=== PATIENT | female | born 1945 | race Caucasian/White ===

== ENCOUNTER 2020-09-16 12:51 | Inpatient (IN) | payer MEDICARE, OTHER ==
[~2020-09-16] VITALS: Ht 170.2 cm; Wt 88.2 kg
[2020-09-16] MEDS ORDERED: RT-ALBUTEROL INHALER HFA (VENTOLIN HFA) 18 GM IH ONE (13:30)
[2020-09-16] MEDS ORDERED: PROMETHAZINE/ CODEINE SYRUP 5 ML UDC PO ONE (13:45)
[2020-09-16] MEDS ORDERED: methylPREDNISolone 125 MG (Solu-MEDROL) VIAL IVP ONE (13:45)
[2020-09-16 13:47] LABS: ABG BASE EXCESS 2.5 MMOL/L (-2.5-2.5); ABG OXYGEN SATURATION 89 % (94-100); ABG PCO2 46 MMHG (35-45); ABG PH 7.38 (7.37-7.43); ABG PO2 60 MMHG (79-93); ABG TCO2 28.7 MMOL/L (21.0-31.0)
[2020-09-16 13:50] LABS: ALLENS TEST YES-POS; INSPIRED O2 2L; PATIENT TEMP 97.5; VENTILATOR NO
[2020-09-16 13:51] LABS: BASOPHILS # (AUTO) 0.1 10^3/uL (0.0-0.1); BASOPHILS % (AUTO) 1 % (0-10); EOSINOPHILS # (AUTO) 1.5 10^3/uL (0.0-0.3); EOSINOPHILS % (AUTO) 19 % (0-10); HEMATOCRIT 40 % (35-52); LYMPHOCYTES # (AUTO) 1.6 10^3/uL (1.0-4.0); LYMPHOCYTES % (AUTO) 21 % (12-44); MEAN CORPUSCULAR HEMOGLOBIN 31 pg (25-34); MEAN CORPUSCULAR HGB CONC 32 g/dL (32-36); MEAN CORPUSCULAR VOLUME 96 fL (80-99); MEAN PLATELET VOLUME 9.8 fL (9.0-12.2); MONOCYTES # (AUTO) 0.5 10^3/uL (0.0-1.0); MONOCYTES % (AUTO) 6 % (0-12); NEUTROPHILS # (AUTO) 3.9 10^3/uL (1.8-7.8); NEUTROPHILS % (AUTO) 52 % (42-75); PLATELET COUNT 274 10^3/uL (130-400); WHITE BLOOD COUNT 7.5 10^3/uL (4.3-11.0)
[2020-09-16 13:56] LABS: ALBUMIN 4.3 GM/DL (3.2-4.5)
--- NOTE | 2020-09-16 13:56 | ED Respiratory ---
General Chief Complaint: Respiratory Problems Stated Complaint: SOB Nursing Triage Note: Pt to ED via EMS. Pt reports increased SOB yesterday. Pt was tested for COVID yesterday but has not received the results. Pt reports symptoms have worsened today. Pt reports health dept gave pt an in home breathing treatment today. EMS reports pt was 85% on room air upon arrival. Pt placed on $L NC and O2 97-98%. Pt reports wearing O2 at night. Source: patient Exam Limitations: no limitations History of Present Illness Date Seen by Provider: Sep 16, 2020 Time Seen by Provider: 13:53 Initial Comments To ER with reports of shortness of breath for about 3 months. She was tested for Covid yesterday but does not know the results. She states she has not left her house and has been diligent about avoiding any social interaction. However she states that she lost her sense of taste and smell about a week ago. Timing/Duration: constant Severity: moderate Associated Symptoms: cough, shortness of breath Allergies and Home Medications Allergies Coded Allergies: No Known Drug Allergies (Unverified , 09/16/20) Patient Home Medication List Home Medication List Reviewed: Yes Review of Systems Review of Systems Constitutional: see HPI EENTM: see HPI Respiratory: see HPI, cough, dyspnea on exertion, short of breath Genitourinary: no symptoms reported Musculoskeletal: no symptoms reported Skin: no symptoms reported Psychiatric/Neurological: No Symptoms Reported Hematologic/Lymphatic: No Symptoms Reported Past Avingpc-Sqmyxx-Hzctsl Hx Patient Social History Alcohol Use: Denies Use Recreational Drug Use: No Smoking Status: Never a Smoker 2nd Hand Smoke Exposure: No Recent Foreign Travel: No Contact w/Someone Who Travel: No Recent Infectious Disease Expo: No Recent Hopitalizations: No Past Medical History Surgeries: Yes (bilat knees) Bladder Surgery, Gallbladder, Hysterectomy, Orthopedic, Tonsillectomy Respiratory: No High Cholesterol, Hypertension 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 oz. kg; 43.00 BMI Method: General Appearance: WD/WN, no apparent distress, other (After turning the oxygen off, with exertion she dropped to 85%.) Eyes: Bilateral Eye Normal Inspection, Bilateral Eye PERRL HEENT: PERRL/EOMI, normal ENT inspection Neck: non-tender, full range of motion Respiratory: no respiratory distress, no accessory muscle use, other (Persistent cough, audible wheezing) Cardiovascular: regular rate, rhythm, no murmur Gastrointestinal: normal bowel sounds, non tender, soft Neurologic/Psychiatric: alert, normal mood/affect, oriented x 3 Skin: normal color, warm/dry Progress/Results/Core Measures Suspected Sepsis Recent Fever Within 48 Hours: No Infection Criteria Present: None New/Unexplained Altered Menta: No Sepsis Screen: No Definite Risk SIRS Temperature: Pulse: 77 Respiratory Rate: 12 Laboratory Tests 09/16/20 13:30: White Blood Count 7.5 Blood Pressure 149 /83 Mean: 105 Laboratory Tests 09/16/20 13:30: Creatinine 0.81, Platelet Count 274, Total Bilirubin 0.7 Results/Orders Lab Results Laboratory Tests Test 09/16/20 13:15 09/16/20 13:30 09/16/20 13:35 Range/Units Coronavirus 2019 (JAYNA) Negative Negative White Blood Count 7.5 4.3-11.0 10^3/uL Red Blood Count 4.18 3.80-5.11 10^6/uL Hemoglobin 13.0 11.5-16.0 g/dL Hematocrit 40 35-52 % Mean Corpuscular Volume 96 80-99 fL Mean Corpuscular Hemoglobin 31 25-34 pg Mean Corpuscular Hemoglobin Concent 32 32-36 g/dL Red Cell Distribution Width 13.8 10.0-14.5 % Platelet Count 274 130-400 10^3/uL Mean Platelet Volume 9.8 9.0-12.2 fL Immature Granulocyte % (Auto) 0 % Neutrophils (%) (Auto) 52 42-75 % Lymphocytes (%) (Auto) 21 12-44 % Monocytes (%) (Auto) 6 0-12 % Eosinophils (%) (Auto) 19 H 0-10 % Basophils (%) (Auto) 1 0-10 % Neutrophils # (Auto) 3.9 1.8-7.8 10^3/uL Lymphocytes # (Auto) 1.6 1.0-4.0 10^3/uL Monocytes # (Auto) 0.5 0.0-1.0 10^3/uL Eosinophils # (Auto) 1.5 H 0.0-0.3 10^3/uL Basophils # (Auto) 0.1 0.0-0.1 10^3/uL Immature Granulocyte # (Auto) 0.0 0.0-0.1 10^3/uL Neutrophils % (Manual) 54 % Lymphocytes % (Manual) 18 % Monocytes % (Manual) 5 % Eosinophils % (Manual) 23 % Blood Morphology Comment NORMAL D-Dimer 0.91 H 0.00-0.49 UG/ML Sodium Level 140 135-145 MMOL/L Potassium Level 3.9 3.6-5.0 MMOL/L Chloride Level 103 98-107 MMOL/L Carbon Dioxide Level 27 21-32 MMOL/L Anion Gap 10 5-14 MMOL/L Blood Urea Nitrogen 21 H 7-18 MG/DL Creatinine 0.81 0.60-1.30 MG/DL Estimat Glomerular Filtration Rate > 60 BUN/Creatinine Ratio 26 Glucose Level 183 H 70-105 MG/DL Calcium Level 9.3 8.5-10.1 MG/DL Corrected Calcium 9.1 8.5-10.1 MG/DL Total Bilirubin 0.7 0.1-1.0 MG/DL Aspartate Amino Transf (AST/SGOT) 19 5-34 U/L Alanine Aminotransferase (ALT/SGPT) 13 0-55 U/L Alkaline Phosphatase 70 40-136 U/L Troponin I < 0.028 <0.028 NG/ML B-Type Natriuretic Peptide 31.6 <100.0 PG/ML Total Protein 7.0 6.4-8.2 GM/DL Albumin 4.3 3.2-4.5 GM/DL Procalcitonin 0.02 <0.10 NG/ML Blood Gas Puncture Site LR Blood Gas Patient Temperature 97.5 Arterial Blood pH 7.38 7.37-7.43 Arterial Blood Partial Pressure CO2 46 H 35-45 MMHG Arterial Blood Partial Pressure O2 60 L 79-93 MMHG Arterial Blood HCO3 27 23-27 MMOL/L Arterial Blood Total CO2 28.7 21.0-31.0 MMOL/L Arterial Blood Oxygen Saturation 89 L 94-100 % Arterial Blood Base Excess 2.5 -2.5-2.5 MMOL/L Rafa Test YES-POS Blood Gas Ventilator Setting NO Blood Gas Inspired Oxygen 2L My Orders Orders - HANS ALVAREZ APRN Albuterol Inhaler (Ventolin Hfa) (09/16/20 13:30) Arterial Blood Gas (09/16/20 13:37) Cbc With Automated Diff (09/16/20 13:44) Comprehensive Metabolic Panel (09/16/20 13:44) BNP (09/16/20 13:44) Fibrin Degradation Products (09/16/20 13:44) Ekg Tracing (09/16/20 13:44) Troponin I (09/16/20 13:44) Chest 1 View, Ap/Pa Only (09/16/20 13:44) Procalcitonin (Pct) (09/16/20 13:44) Methylprednisolone Sod Succ (Solu-Medrol (09/16/20 13:45) Albuterol Inhaler (Ventolin Hfa) (09/16/20 14:00) Promethazine/ Codeine Syrup (Phenergan W (09/16/20 13:45) Manual Differential (09/16/20 13:30) Covid 19 Inhouse Test (09/16/20 14:05) Coronavirus Sars-Cov-2 So 2018 (09/16/20 14:49) Medications Given in ED Current Medications Medications Dose Ordered Sig/Koffi Route Start Time Stop Time Status Last Admin Dose Admin Albuterol Sulfate 18 gm STK-MED ONCE IH 09/16/20 13:30 09/16/20 13:33 DC 09/16/20 13:39 18 GM Methylprednisolone Sodium Succinate 125 mg ONCE ONCE IVP 09/16/20 13:45 09/16/20 13:46 DC 09/16/20 14:08 125 MG Promethazine HCl/ Codeine 5 ml ONCE ONCE PO 09/16/20 13:45 09/16/20 13:46 DC 09/16/20 14:07 5 ML Vital Signs/I&O 09/16/20 13:01 Temp 36.8 Pulse 77 Resp 12 B/P (MAP) 149/83 (105) Pulse Ox 98 O2 Delivery Nasal Cannula O2 Flow Rate 4.00 Capillary Refill : Less Than 3 Seconds Blood Pressure Mean: 105 Departure Communication (Admissions) Time/Spoke to Admitting Phy: 14:51 She does not wear oxygen at home. She does drop to 85% with a good waveform on her oxygen saturation with any exertion such as movement in bed to obtain an x- ray. At rest at 2 L she is 96%. The albuterol inhaler did help with the wheezing. Impression Primary Impression: ARTEAGA (dyspnea on exertion) Additional Impression: Reactive airway disease Disposition: ADMITTED INPATIENT Condition: Stable Admissions Decision to Admit Reason: Admit from ER (General) Decision to Admit/Date: Sep 16, 2020 Time/Decision to Admit Time: 14:51 HANS ALVAREZ APRN Sep 16, 2020 13:56
[2020-09-16 13:57] LABS: CHLORIDE 103 MMOL/L (98-107); POTASSIUM 3.9 MMOL/L (3.6-5.0); SODIUM 140 MMOL/L (135-145)
[2020-09-16 13:58] LABS: CALCIUM 9.3 MG/DL (8.5-10.1)
[2020-09-16 13:59] LABS: GLUCOSE 183 MG/DL (70-105)
[2020-09-16 14:00] LABS: CARBON DIOXIDE 27 MMOL/L (21-32)
[2020-09-16] MEDS ORDERED: RT-ALBUTEROL INHALER HFA (VENTOLIN HFA) 18 GM IH SCH ×2 (14:00→18:00)
[2020-09-16 14:01] LABS: BILIRUBIN,TOTAL 0.7 MG/DL (0.1-1.0)
[2020-09-16 14:02] LABS: ALKALINE PHOSPHATASE 70 U/L (40-136); EOSINOPHILS % (MANUAL) 23 %; LYMPHOCYTES % (MANUAL) 18 %; MONOCYTES % (MANUAL) 5 %; NEUTROPHILS % (MANUAL) 54 %; RBC MORPH NORMAL
[2020-09-16 14:03] LABS: CREATININE SERUM 0.81 MG/DL (0.60-1.30); GFR ESTIMATED > 60
[2020-09-16 14:04] LABS: BUN/CREATININE RATIO 26
[2020-09-16 14:06] LABS: ALANINE AMINOTRANSFERASE 13 U/L (0-55)
--- NOTE | 2020-09-16 14:12 | Diagnostic Imaging Report ---
INDICATION: Cough. COMPARISON: No priors. FINDINGS: The lungs are clear. There is no failure, effusion, or pneumothorax. IMPRESSION: Negative. Dictated by: Dictated on workstation # [id number]
[2020-09-16] MEDS ORDERED: TRIFLURIDINE 1% 7.5 ML BTL (VIROPTIC) NON-FORMULARY OU SCH (15:00)
[2020-09-16] MEDS ORDERED: CATHETER FLUSH 10 ML SYR IV PRN (16:15)
--- NOTE | 2020-09-16 16:30 | NUR ---
LISA ZEPEDA admitted to room 403-1, with an admitting diagnosis of COPD EXACERBATION, on 09/16/20 from AM via , accompanied by .LISA ZEPEDA introduced to surroundings, call light, bed controls, phone, TV, temperature control, lights, meal times, smoking policy, visitor policy, side rail policy, bathrooms and showers. Patient Rights given to patient in the handbook.LISA ZEPEDA verbalizes understanding that [facility] is not responsible for the loss or damage to any personal effects or valuables that are kept in the patients posession during their hospitalization. LISA ZEPEDA verbalizes understanding of Interdisciplinary Patient Education. Patient and/or family were informed about the Rapid Response Team and its purpose.
[2020-09-16 16:52] VITALS: BP 162/78
[2020-09-16] MEDS ORDERED: FLU QUAD HIGH DOSE 240 MCG/0.7 ML 2020-21 (FLUZONE) IM ONE (17:00)
[2020-09-16 17:28] VITALS: BP 149/83
[2020-09-16] MEDS ORDERED: RT-ALBUTEROL INHALER HFA (VENTOLIN HFA) 18 GM IH PRN (17:45)
[2020-09-16] MEDS ORDERED: ALBUTEROL/IPRATROP (COMBIVENT RESPIMAT) 4 GM INHALER INH SCH (19:00)
[2020-09-16] MEDS: RT-ALBUTEROL INHALER HFA (VENTOLIN HFA) 18 GM IH SCH (19:02)
[2020-09-16 20:00] VITALS: BP 189/79
[2020-09-16] MEDS: methylPREDNISolone 40 MG/ML (Solu-MEDROL) VIAL IV SCH (21:04)
[2020-09-16] MEDS: CATHETER FLUSH 10 ML SYR IV SCH (21:05)
[2020-09-16] MEDS: ACETAMINOPHEN 500 MG TAB (TYLENOL) PO PRN (21:53)
[2020-09-17 00:21] VITALS: BP 170/64
[2020-09-17 04:36] VITALS: BP 182/71
[2020-09-17] MEDS: RT-ALBUTEROL INHALER HFA (VENTOLIN HFA) 18 GM IH SCH ×4 (04:52→20:05)
[2020-09-17] MEDS: methylPREDNISolone 40 MG/ML (Solu-MEDROL) VIAL IV SCH ×3 (04:53→21:14)
[2020-09-17] MEDS: CATHETER FLUSH 10 ML SYR IV SCH ×3 (04:53→21:14)
[2020-09-17 05:31] LABS: BASOPHILS % (AUTO) 0 % (0-10); EOSINOPHILS % (AUTO) 0 % (0-10); HEMATOCRIT 41 % (35-52); HEMOGLOBIN 12.9 g/dL (11.5-16.0); LYMPHOCYTES % (AUTO) 12 % (12-44); MEAN CORPUSCULAR HEMOGLOBIN 31 pg (25-34); MEAN CORPUSCULAR HGB CONC 32 g/dL (32-36); MEAN CORPUSCULAR VOLUME 97 fL (80-99); MEAN PLATELET VOLUME 10.6 fL (9.0-12.2); MONOCYTES # (AUTO) 0.1 10^3/uL (0.0-1.0); MONOCYTES % (AUTO) 2 % (0-12); NEUTROPHILS # (AUTO) 6.9 10^3/uL (1.8-7.8); NEUTROPHILS % (AUTO) 86 % (42-75); PLATELET COUNT 246 10^3/uL (130-400)
[2020-09-17 06:03] LABS: ALBUMIN 4.4 GM/DL (3.2-4.5); CHLORIDE 105 MMOL/L (98-107); POTASSIUM 3.7 MMOL/L (3.6-5.0); SODIUM 139 MMOL/L (135-145)
[2020-09-17 06:04] LABS: CALCIUM 9.5 MG/DL (8.5-10.1)
[2020-09-17 06:05] LABS: GLUCOSE 241 MG/DL (70-105); TOTAL PROTEIN 7.2 GM/DL (6.4-8.2)
[2020-09-17 06:06] LABS: CARBON DIOXIDE 22 MMOL/L (21-32)
[2020-09-17 06:07] LABS: BILIRUBIN,TOTAL 0.6 MG/DL (0.1-1.0)
[2020-09-17 06:08] LABS: ALKALINE PHOSPHATASE 69 U/L (40-136)
[2020-09-17 06:09] LABS: CREATININE SERUM 0.79 MG/DL (0.60-1.30); GFR ESTIMATED > 60
[2020-09-17 06:10] LABS: BUN/CREATININE RATIO 23
[2020-09-17 06:12] LABS: ALANINE AMINOTRANSFERASE 12 U/L (0-55)
[2020-09-17] MEDS: ACETAMINOPHEN 500 MG TAB (TYLENOL) PO PRN (06:23)
[2020-09-17 08:00] VITALS: BP 160/70
--- NOTE | 2020-09-17 09:21 | History & Physical-Hospitalist ---
History of Present Illness HPI/Chief Complaint CC: SOB with wheezing HPI: This is a 75yoWF pt who remains on O2 at night of two liters who also has a history of chemotherapy induced neuropathy and chronic pain who presents to the ER with SOB. Covid swab for rapid and PCR were both negative so she was taken out of isolation this morning. Pt reports feeling wheezing and in need of aggressive IV steroid regimen along with breathing treatments and close monitoring. Procalcitonin was negative, no antibiotics required and will start her Gabapentin and Hydrocodone for her chronic neuropathy that causes a great deal of pain. We will also restart her Singulair and in addition will restart inhaled corticosteroid with Budesonide twice daily. Source: patient Exam Limitations: no limitations Date Seen 09/17/20 Time Seen by a Provider: 10:00 Attending Physician Patsy Owens MD PCP Referring Physician Date of Admission Sep 16, 2020 at 15:00 Home Medications & Allergies Home Medications Reviewed patient Home Medication Reconciliation performed by pharmacy medication reconciliations help desk technician and/or nursing. Patients Allergies have been reviewed. Allergies Allergies Coded Allergies No Known Drug Allergies (Feexoctpot67/15/20) Past Kqbzlaf-Ffhmqn-Ekywzq Hx Past Med/Social Hx: Reviewed Nursing Past Med/Soc Hx, Reviewed and Corrections made Patient Social History Marrital Status: Employed/Student: retired Alcohol Use: Denies Use Recreational Drug Use: No Smoking Status: Never a Smoker 2nd Hand Smoke Exposure: No Recent Foreign Travel: No Contact w/other who traveled: No Recent Hopitalizations: No Recent Infectious Disease Expo: No Past Medical History Surgeries: Bladder Surgery, Gallbladder, Hysterectomy, Orthopedic, Tonsillectomy Respiratory: COPD night time hypoxia Cardiac: High Cholesterol, Hypertension Hysterectomy Musculoskeletal: Arthritis, Chronic Back Pain Endocrine: Diabetes, Non-Insulin dep HEENT: Cataract Cancer: Ovarian Did You Recieve Any Treatments: Yes What Type of Treatment Did You: Chemotherapy History of Blood Disorders: No Review of Systems Constitutional: see HPI, malaise, weakness Respiratory: cough, dyspnea on exertion, wheezing Physical Exam Physical Exam Vital Signs Vital Signs - First Documented 09/16/20 13:01 Temp 36.8 Pulse 77 Resp 12 B/P (MAP) 149/83 (105) Pulse Ox 98 O2 Delivery Nasal Cannula O2 Flow Rate 4.00 Capillary Refill : Less Than 3 Seconds Height, Weight, BMI Height: '" Weight: lbs. oz. kg; 30.44 BMI Method: General Appearance: No Apparent Distress, Chronically ill Eyes: Right Eye Normal Inspection, Right Eye PERRL HEENT: PERRL/EOMI, Normal ENT Inspection, Pharynx Normal, Moist Mucous Membranes Neck: Full Range of Motion, Normal Inspection, Non Tender Respiratory: Chest Non Tender, No Accessory Muscle Use, No Respiratory Distress, Decreased Breath Sounds, Rales, Wheezing Cardiovascular: Regular Rate, Rhythm, No Edema, No Gallop, No JVD, No Murmur, Normal Peripheral Pulses Gastrointestinal: Normal Bowel Sounds, No Organomegaly, No Pulsatile Mass, Non Tender, Soft Back: Normal Inspection, No CVA Tenderness, No Vertebral Tenderness Extremity: Normal Capillary Refill, Normal Inspection, Normal Range of Motion, Non Tender, No Calf Tenderness, No Pedal Edema Neurologic/Psychiatric: Alert, Oriented x3, No Motor/Sensory Deficits, Normal Mood/Affect Skin: Normal Color, Warm/Dry Lymphatic: No Adenopathy Results Results/Procedures Labs Laboratory Tests 09/16/20 13:30 09/17/20 04:25 Patient resulted labs reviewed. Assessment/Plan Admission Diagnosis Assessment: AECOPD Hypoxia COVID negative CHemotherapy induced neuropathy DM HTN Plan: IV steroids Nebs O2 IS ICS Admission Status: Inpatient Order (span 2 midnights) Reason for Inpatient Admission: resp insuff with wheezing Diagnosis/Problems Diagnosis/Problems (1) Reactive airway disease Status: Acute (2) ARTEAGA (dyspnea on exertion) Status: Acute Clinical Quality Measures DVT/VTE Risk/Contraindication: Risk Factor Score Per Nursin RFS Level Per Nursing on Admit: 4+=Very High ABIGAIL MAHER DO Sep 17, 2020 09:21
[2020-09-17] MEDS ORDERED: MONTELUKAST 10 MG (SINGULAIR) TAB PO NR (09:45)
[2020-09-17] MEDS ORDERED: RT-ALBUTEROL/IPRATROPIUM 3 ML (DUONEB) VIAL INH SCH (09:45)
[2020-09-17] MEDS: GABAPENTIN 600 MG (NEURONTIN) TAB PO SCH ×3 (10:13→21:14)
[2020-09-17] MEDS: ENOXAPARIN 40 MG/0.4 ML (LOVENOX) SYR SC SCH (10:14)
--- NOTE | 2020-09-17 10:47 | NUR ---
"RD ASSESSMENT PMHx: hypercholesterolemia; HTN; DM; CA(ovarian); PT INTERACTION: Note pt is currently in COVID isolation, per chart review. Note all diet information for nutrition assessment is per Timothy RN or per chart review. Ne states current appetite appears good. Note avg PO intake 75% x2meal, per chart review. Timothy states no issues with nausea, vomiting, constipation, or diarrhea, and that her last BM was 09/16. Note pt not currently on bowel regimen per chart review. Note unable to determine recent wt hx, per chart review. Note unable to determine current level of DM management, and unable to determine recent HbA1c, per chart review. ABNORMAL NUTRITION-RELATED LAB VALUES LOW: HIGH: glu 241; Est. kcal needs: 1840-2449 kcal | 15-20 kcal/kg Est. Pro needs: 70-88 g Pro | 0.8-1.0 g Pro/kg PES STATEMENT: Given current appetite and PO intake, no nutrition diagnosis at this time (NO-1.1). INTERVENTION: Would recommend switching diet order to Consistent CHO diet, as blood glucose levels are elevated. Did not offer diet education on DM management d/t isolation precautions. Will continue to follow and reassess as pt needs, intake, and status change. S CARLOS TELLO, MS RD LD [phone] cell"
[2020-09-17] MEDS: RT-BUDESONIDE NEBS 0.5 MG/2ML (PULMICORT) AMP INH SCH (11:28)
[2020-09-17] MEDS: HYDROcodone/APAP 10 MG/325 MG (LORTAB) TAB PO PRN ×2 (13:07→21:17)
[2020-09-17 16:00] VITALS: BP 188/74
[2020-09-17 20:00] VITALS: BP 172/71
[2020-09-17] MEDS: MONTELUKAST 10 MG (SINGULAIR) TAB PO SCH (21:14)
[2020-09-18 00:33] VITALS: BP 193/77
[2020-09-18] MEDS: guaiFENesin/CODEINE (ROBITUSSIN AC) 10ML UDC PO PRN ×3 (01:13→21:41)
[2020-09-18] MEDS: RT-ALBUTEROL INHALER HFA (VENTOLIN HFA) 18 GM IH SCH ×4 (03:07→20:34)
[2020-09-18 04:00] VITALS: BP 191/77
--- NOTE | 2020-09-18 05:53 | Progress Note - Hospitalist ---
Subjective HPI/CC On Admission Date Seen by Provider: Sep 18, 2020 Time Seen by Provider: 10:00 CC: SOB with wheezing HPI: This is a 75yoWF pt who remains on O2 at night of two liters who also has a history of chemotherapy induced neuropathy and chronic pain who presents to the ER with SOB. Covid swab for rapid and PCR were both negative so she was taken out of isolation this morning. Pt reports feeling wheezing and in need of aggressive IV steroid regimen along with breathing treatments and close monitoring. Procalcitonin was negative, no antibiotics required and will start her Gabapentin and Hydrocodone for her chronic neuropathy that causes a great deal of pain. We will also restart her Singulair and in addition will restart inhaled corticosteroid with Budesonide twice daily. Subjective/Events-last exam Patient improved but still wheezy and coughing Labs reviewed Steroid effect increasing wbc No pain reported as long as home meds given Eating better PT OT will be ordered ACCu checks will be ordered Review of Systems Pulmonary: Dyspnea, Cough Objective Exam Vital Signs Vital Signs Date Time Temp Pulse Resp B/P (MAP) Pulse Ox O2 Delivery O2 Flow Rate FiO2 09/19/20 04:00 36.8 56 18 181/76 (111) 97 Nasal Cannula 2.50 Capillary Refill : Less Than 3 Seconds General Appearance: No Apparent Distress, WD/WN, Anxious, Chronically ill Respiratory: No Accessory Muscle Use, No Respiratory Distress, Decreased Breath Sounds, Wheezing Cardiovascular: Regular Rate, Rhythm Neurologic/Psychiatric: Alert, Oriented x3, No Motor/Sensory Deficits, Normal Mood/Affect Results/Procedures Lab Laboratory Tests 09/18/20 05:50 Patient resulted labs reviewed. Assessment/Plan Assessment and Plan Assess & Plan/Chief Complaint Assessment: AECOPD Hypoxia COVID negative CHemotherapy induced neuropathy DM HTN Plan: IV steroids Nebs O2 IS ICS 09/18/20: Accuchecks with SSI PT OT Nebs Antitussives Diagnosis/Problems Diagnosis/Problems (1) Reactive airway disease Status: Acute (2) ARTEAGA (dyspnea on exertion) Status: Acute Clinical Quality Measures DVT/VTE Risk/Contraindication: Risk Factor Score Per Nursin RFS Level Per Nursing on Admit: 4+=Very High ABIGAIL MAHER DO Sep 18, 2020 05:53
[2020-09-18] MEDS: methylPREDNISolone 40 MG/ML (Solu-MEDROL) VIAL IV SCH ×3 (06:30→21:43)
[2020-09-18] MEDS: CATHETER FLUSH 10 ML SYR IV SCH ×2 (06:31→21:43)
[2020-09-18 06:48] LABS: BASOPHILS % (AUTO) 0 % (0-10); EOSINOPHILS % (AUTO) 0 % (0-10); HEMATOCRIT 42 % (35-52); HEMOGLOBIN 13.4 g/dL (11.5-16.0); LYMPHOCYTES # (AUTO) 1.3 10^3/uL (1.0-4.0); LYMPHOCYTES % (AUTO) 7 % (12-44); MEAN CORPUSCULAR HEMOGLOBIN 30 pg (25-34); MEAN CORPUSCULAR HGB CONC 32 g/dL (32-36); MEAN CORPUSCULAR VOLUME 95 fL (80-99); MEAN PLATELET VOLUME 10.5 fL (9.0-12.2); MONOCYTES # (AUTO) 0.4 10^3/uL (0.0-1.0); MONOCYTES % (AUTO) 3 % (0-12); NEUTROPHILS % (AUTO) 90 % (42-75); PLATELET COUNT 327 10^3/uL (130-400); WHITE BLOOD COUNT 17.8 10^3/uL (4.3-11.0)
[2020-09-18 07:14] LABS: LYMPHOCYTES % (MANUAL) 10 %; MONOCYTES % (MANUAL) 3 %; NEUTROPHILS % (MANUAL) 87 %; RBC MORPH NORMAL
[2020-09-18 07:17] LABS: ALANINE AMINOTRANSFERASE 16 U/L (0-55); ALBUMIN 4.6 GM/DL (3.2-4.5); ALKALINE PHOSPHATASE 69 U/L (40-136); BILIRUBIN,TOTAL 0.6 MG/DL (0.1-1.0); BUN/CREATININE RATIO 21; CALCIUM 9.8 MG/DL (8.5-10.1); CARBON DIOXIDE 27 MMOL/L (21-32); CHLORIDE 103 MMOL/L (98-107); CREATININE SERUM 0.89 MG/DL (0.60-1.30); GFR ESTIMATED > 60; GLUCOSE 249 MG/DL (70-105); POTASSIUM 3.7 MMOL/L (3.6-5.0); SODIUM 141 MMOL/L (135-145); TOTAL PROTEIN 7.6 GM/DL (6.4-8.2)
[2020-09-18 08:00] VITALS: BP 180/76
[2020-09-18] MEDS: ENOXAPARIN 40 MG/0.4 ML (LOVENOX) SYR SC SCH (08:56)
[2020-09-18] MEDS: GABAPENTIN 600 MG (NEURONTIN) TAB PO SCH ×3 (08:56→21:41)
[2020-09-18] MEDS: RT-BUDESONIDE NEBS 0.5 MG/2ML (PULMICORT) AMP INH SCH ×2 (10:35→20:37)
[2020-09-18 11:10] VITALS: BP 137/65
--- NOTE | 2020-09-18 13:33 | Occupational Therapy Eval ---
OT Evaluation-General/PLF Medical Diagnosis Admission Date Sep 16, 2020 at 15:00 Medical Diagnosis: COPD exacerbation Onset Date: Sep 16, 2020 Therapy Diagnosis Therapy Diagnosis: decreased activity tolerance, weakness Precautions Precautions/Isolations: Standard Precautions Referral Physician: Vic Galvin Reason: Evaluation/Treatment Medical History Pertinent Medical History: Arthritis, COPD, DM, HTN Additional Medical History ovarian cancer, chemotherapy induced neuropathy and chronic pain, bladder surgery, gallbladder surgery, night time hypoxia, COPD, HTN, arthritis, DM, Current History ER due to SOB, Negative for COVID Social History Home: Single Level Current Living Status: Children Entry Into Home: Stairs Without Railing Steps Into Home: 3 Pt moving to a rental house with her daughter at discharge. This house is a single story house with a few steps to enter, no rails. ADL-Prior Level of Function SCALE: Activities may be completed with or without assistive devices. 3-Lxgbphqycd-amxynwe completes the activity by him/herself with no assistance from a helper. 5-Set-up or Clean-up Assistance-helper sets up or cleans up; patient completes activity. [place] assists only prior to or following the activity. 4-Supervision or Touching Assistance-helper provides verbal cues and/or touching/steadying and/or contact guard assistance as patient completes activity. Assistance may be provided throughout the activity or intermittently. 3-Partial/Moderate Assistance-helper does LESS THAN HALF the effort. [place] lifts, holds or supports trunk or limbs, but provides less than half the effort. 2-Substantial/Maximal Assistance-helper does MORE THAN HALF the effort. [place] lifts or holds trunk or limbs and provides more than half the effort. 3-Moljeurzn-afkmnw does ALL the effort. Patient does none of the effort to complete the activity. Or, the assistance of 2 or more helpers is required for the patient to complete the activity. If activity was not attempted, code reason: 7-Patient Refused. 9-Not Applicable-not attempted and the patient did not perform the activity before the current illness, exacerbation or injury. 10-Not Attempted due to Environmental Limitations-(lack of equipment, weather restraints, etc.). 88-Not Attempted due to Medical Conditions or Safety Concerns. ADL PLOF Comments Pt indicates she was able to complete all ADLS and functional mobility independently at PLOF, using quad cane. Pt indicates she is moving to a rental house with her daughter upon discharge, this house has a tub/shower. She does not have a shower chair or grab bars but her daughter is in the process of trying to obtain these items. Self Care: Independent Functional Cognition: Independent DME/Equipment: Tub/Shower DME/Equipment Comments quad cane OT Current Status Subjective Pt laying in bed, agreeable to OT evaluation and tx. Pt states she has been getting herself up to BSC independently. Mental Status/Objective Patient Orientation: Person, Place, Time, Situation Attachments: Oxygen Current Hand Dominance: Right Upper Extremity ROM WFL, BUE shoulder flexion to approx 160 degrees, able to touch back of head with hands. Upper Extremity Coordination slightly decreased due to decreased sensation in fingers Upper Extremity Sensation decreased sensations BUE hands/fingers. ADL-Treatment Eating (QC): 6 (per pt report, pt independent with task.) Oral Hygiene (QC): 6 (based on clinical judgement, pt independent with task) On/Off Footwear (QC): 6 Toileting Hygiene (QC): 6 (IND per pt report.) Other Treatments Pt laying in bed. OT educated pt on purpose and benefit of OT, she verbalized understanding. Pt provided information about PLOF and home set up. Pt transferred supine to sit EOB, SBA. Pt required rest break due to SOB. Pt able to independently don gripper socks at EOB, then stood at EOB and took a few steps with SBA. Pt returned to EOB, doffed gripper socks, and participated in UE screen, transferring supine independently. Pt indicates she has been getting herself up to the BSC independently. Post tx, pt laying in bed, call light in reach and all needs met. Education OT Patient Education: Correct positioning, Energy conservation, Modified ADL techniques, Progress toward Goal/Update tx plan, Purpose of tx/functional activities, Rehab process Teaching Recipient: Patient Teaching Methods: Discussion Response to Teaching: Verbalize Understanding OT Group Home Goals Food And Drug Inspector Goals 1=Demonstrate adherence to instructed precautions during ADL tasks. 2=Patient will verbalize/demonstrate understanding of assistive devices/modifications for ADL. 3=Patient will improve strength/tolerance for activity to enable patient to perform ADL's. OT Education/Plan Problem List/Assessment Assessment: No Skilled OT Needs ID'd Pt is currently independent with all ADLs, no skilled OT services indicated at this time Discharge Recommendations Plan/Recommendations: Discharge/Goals Met Treatment Plan/Plan of Care Patient would benefit from OT for education, treatment and training to promote independence in ADL's, mobility, safety and/or upper extremity function for ADL's. Plan of Care: ADL Retraining Treatment Duration: Sep 18, 2020 Frequency: 1 time per week (eval only) Time/GCodes Start Time: 13:09 Stop Time: 13:21 Total Time Billed (hr/min): 12 Billed Treatment Time 1, JOHN SESAY OT Sep 18, 2020 13:33
[2020-09-18] MEDS: ACETAMINOPHEN 500 MG TAB (TYLENOL) PO PRN ×2 (13:56→21:41)
--- NOTE | 2020-09-18 14:28 | Physical Therapy Evaluation ---
PT Evaluation-General Medical Diagnosis Admission Date Sep 16, 2020 at 15:00 Medical Diagnosis: COPD exacerbation Onset Date: Sep 16, 2020 Therapy Diagnosis Therapy Diagnosis: debility Precautions Precautions/Isolations: Standard Precautions Referral Physician: Vic Reason for Referral: Evaluation/Treatment Medical History Pertinent Medical History: Arthritis, COPD, DM, HTN Current History EMS secondary to SOA x 3 months Reviewed History: Yes Social History Home: Single Level Current Living Status: Children Entry Into Home: Stairs Without Railing PT Steps Into Home: 3 Prior Prior Level of Function SCALE: Activities may be completed with or without assistive devices. 0-Cnquowzbwn-kcgxikl completes the activity by him/herself with no assistance from a helper. 5-Set-up or Clean-up Assistance-helper sets up or cleans up; patient completes activity. [place] assists only prior to or following the activity. 4-Supervision or Touching Assistance-helper provides verbal cues and/or touching/steadying and/or contact guard assistance as patient completes activity. Assistance may be provided throughout the activity or intermittently. 3-Partial/Moderate Assistance-helper does LESS THAN HALF the effort. [place] l ifts, holds or supports trunk or limbs, but provides less than half the effort. 2-Substantial/Maximal Assistance-helper does MORE THAN HALF the effort. [place] lifts or holds trunk or limbs and provides more than half the effort. 9-Tbbmaysgr-ojcwtz does ALL the effort. Patient does none of the effort to complete the activity. Or, the assistance of 2 or more helpers is required for t he patient to complete the activity. If activity was not attempted, code reason: 7-Patient Refused. 9-Not Applicable-not attempted and the patient did not perform the activity before the current illness, exacerbation or injury. 10-Not Attempted due to Environmental Limitations-(lack of equipment, weather restraints, etc.). 88-Not Attempted due to Medical Conditions or Safety Concerns. Bed Mobility: 6 Transfers (B,C,W/C): 6 Gait: 6 Stairs: 6 Indoor Mobility (Ambulation): Independent Stairs: Independent Prior Devices Use: None PT Evaluation-Current Subjective Patient is in bed and agrees to PT. 3L O2 NC in place Objective Patient Orientation: Normal For Age Attachments: Oxygen (3L) ROM/Strength ROM Lower Extremities bilateral LE WFL Strength Lower Extremities 4/5 grossly bilateral LE Integumentary/Posture Integumentary refer to nursing notes Bowel Incontinence: No Bladder Incontinence: No Posture slightly kyphotic Neuromuscular (Tone, Coordination, Reflexes) grossly intact Sensory Vision: Functional Hearing: Functional Hand Dominance: Right Transfers Roll Left to Right (QC): 6 Sit to Lying (QC): 6 Lying to Sitting/Side of Bed(Q: 6 Sit to Stand (QC): 6 Toilet Transfer (QC): 6 Gait Does the Patient Walk?: Yes Mode of Locomotion: Walk Anticipated Mode of Locomotion: Walk Walk 10 feet (QC): 6 Walk 50 ft with 2 Turns(QC): 6 Walk 150 ft (QC): 6 Distance: 180' in room Gait Assistive Device: None Comments/Gait Description safe and functional with no deviation Balance Sitting Static: Normal Sitting Dynamic: Normal Standing Static: Normal Standing Dynamic: Normal Picking up an Object (QC): 6 (donned socks in seated position) Assessment/Needs 75 y.o. female, is currently at independent [facility] with all gross motor skills safely and does not require skilled therapy intervention. Patient has been instructed to ambulate in room PRN independently. Patient is limited due to uncontrolled coughing. Rehab Potential: Fair PT Plan Treatment/Plan Treatment Plan: Discontinue PT, goals met Treatment Duration: Sep 18, 2020 Frequency: 1 time per week Estimated Hrs Per Day: .25 hour per day Patient and/or Family Agrees t: Yes Time/GCodes Time In: 1347 Time Out: 1405 Total Billed Treatment Time: 18 Total Billed Treatment 1 visit EVMod 18 min LATISHA RAMIREZ PT Sep 18, 2020 14:28
[2020-09-18 16:00] VITALS: BP 180/74
[2020-09-18 20:00] VITALS: BP 151/80
[2020-09-18] MEDS: MONTELUKAST 10 MG (SINGULAIR) TAB PO SCH (21:41)
[2020-09-19] VITALS: BP 181/76
[2020-09-19] MEDS: RT-ALBUTEROL INHALER HFA (VENTOLIN HFA) 18 GM IH SCH ×3 (02:31→14:17)
[2020-09-19 04:00] VITALS: BP 181/76
--- NOTE | 2020-09-19 05:42 | Progress Note - Hospitalist ---
Subjective HPI/CC On Admission Date Seen by Provider: Sep 19, 2020 CC: SOB with wheezing HPI: This is a 75yoWF pt who remains on O2 at night of two liters who also has a history of chemotherapy induced neuropathy and chronic pain who presents to the ER with SOB. Covid swab for rapid and PCR were both negative so she was taken out of isolation this morning. Pt reports feeling wheezing and in need of aggressive IV steroid regimen along with breathing treatments and close monitoring. Procalcitonin was negative, no antibiotics required and will start her Gabapentin and Hydrocodone for her chronic neuropathy that causes a great deal of pain. We will also restart her Singulair and in addition will restart inhaled corticosteroid with Budesonide twice daily. Objective Exam Vital Signs Vital Signs Date Time Temp Pulse Resp B/P (MAP) Pulse Ox O2 Delivery O2 Flow Rate FiO2 09/19/20 08:29 90 09/19/20 08:25 Nasal Cannula 2.50 09/19/20 08:00 35.6 61 20 189/74 (112) Capillary Refill : Less Than 3 SecondsLess Than 3 Seconds Results/Procedures Lab Laboratory Tests 09/19/20 05:25 Patient resulted labs reviewed. Assessment/Plan Assessment and Plan Assess & Plan/Chief Complaint Assessment: AECOPD Hypoxia COVID negative CHemotherapy induced neuropathy DM HTN Plan: IV steroids Nebs O2 IS ICS 09/18/20: Accuchecks with SSI PT OT Nebs Antitussives Diagnosis/Problems Diagnosis/Problems (1) Reactive airway disease Status: Acute (2) ARTEAGA (dyspnea on exertion) Status: Acute Clinical Quality Measures DVT/VTE Risk/Contraindication: Risk Factor Score Per Nursin RFS Level Per Nursing on Admit: 4+=Very High ABIGAIL MAHER DO Sep 19, 2020 05:42
[2020-09-19] MEDS: methylPREDNISolone 40 MG/ML (Solu-MEDROL) VIAL IV SCH ×2 (05:46→14:39)
[2020-09-19] MEDS: CATHETER FLUSH 10 ML SYR IV SCH ×2 (05:46→14:00)
[2020-09-19] MEDS: inSUlin ASPART (NovoLOG) 1 UNIT/0.01 ML (CHARGE PER UNIT) SC SCH ×3 (05:47→16:50)
[2020-09-19 06:23] LABS: BASOPHILS % (AUTO) 0 % (0-10); EOSINOPHILS % (AUTO) 0 % (0-10); HEMATOCRIT 40 % (35-52); HEMOGLOBIN 12.8 g/dL (11.5-16.0); LYMPHOCYTES # (AUTO) 0.9 10^3/uL (1.0-4.0); LYMPHOCYTES % (AUTO) 7 % (12-44); MEAN CORPUSCULAR HEMOGLOBIN 31 pg (25-34); MEAN CORPUSCULAR HGB CONC 32 g/dL (32-36); MEAN CORPUSCULAR VOLUME 96 fL (80-99); MEAN PLATELET VOLUME 10.9 fL (9.0-12.2); MONOCYTES # (AUTO) 0.3 10^3/uL (0.0-1.0); MONOCYTES % (AUTO) 2 % (0-12); NEUTROPHILS # (AUTO) 10.3 10^3/uL (1.8-7.8); NEUTROPHILS % (AUTO) 90 % (42-75); PLATELET COUNT 294 10^3/uL (130-400); WHITE BLOOD COUNT 11.5 10^3/uL (4.3-11.0)
[2020-09-19 06:33] LABS: ALBUMIN 4.1 GM/DL (3.2-4.5); CHLORIDE 103 MMOL/L (98-107); POTASSIUM 3.9 MMOL/L (3.6-5.0); SODIUM 138 MMOL/L (135-145)
[2020-09-19 06:35] LABS: CALCIUM 9.6 MG/DL (8.5-10.1)
[2020-09-19 06:36] LABS: GLUCOSE 310 MG/DL (70-105); TOTAL PROTEIN 6.8 GM/DL (6.4-8.2)
[2020-09-19 06:37] LABS: CARBON DIOXIDE 25 MMOL/L (21-32)
[2020-09-19 06:38] LABS: BILIRUBIN,TOTAL 0.6 MG/DL (0.1-1.0)
[2020-09-19 06:39] LABS: ALKALINE PHOSPHATASE 62 U/L (40-136)
[2020-09-19 06:40] LABS: GFR ESTIMATED > 60
[2020-09-19 06:41] LABS: BUN/CREATININE RATIO 29
[2020-09-19 06:42] LABS: ALANINE AMINOTRANSFERASE 16 U/L (0-55)
[2020-09-19 08:00] VITALS: BP 189/74
[2020-09-19] MEDS: GABAPENTIN 600 MG (NEURONTIN) TAB PO SCH ×2 (08:21→12:10)
[2020-09-19] MEDS: ENOXAPARIN 40 MG/0.4 ML (LOVENOX) SYR SC SCH (08:21)
[2020-09-19] MEDS: RT-BUDESONIDE NEBS 0.5 MG/2ML (PULMICORT) AMP INH SCH (08:25)
--- NOTE | 2020-09-19 10:41 | Diagnostic Imaging Report ---
INDICATION: Respiratory distress with abnormal breath sounds. COMPARISON: 09/16/2020. FINDINGS: A lateral view shows lungs to be well-aerated and clear. Heart is not enlarged. No pulmonary edema or hilar adenopathy. No pneumothorax or pleural effusion. IMPRESSION: Normal PA and lateral chest Dictated by: Dictated on workstation # [id number]
[2020-09-19 12:00] VITALS: BP 194/88
[2020-09-19] MEDS ORDERED: amLODIPine 5 MG (NORVASC) TAB PO NR (12:15)
[2020-09-19] MEDS ORDERED: ATOR20TA66 PO (12:34)
[2020-09-19] MEDS ORDERED: ESCI20TA45 PO (12:34)
[2020-09-19] MEDS ORDERED: METF-865 PO (12:34)
[2020-09-19] MEDS ORDERED: MONT10TA97 PO (12:34)
[2020-09-19] MEDS ORDERED: DICY20TA10 PO (12:34)
[2020-09-19] MEDS ORDERED: GBPN600T PO (12:34)
[2020-09-19] MEDS ORDERED: TIZA4TAB4 PO (12:34)
[2020-09-19] MEDS ORDERED: ACHYD1T PO (12:36)
[2020-09-19] MEDS ORDERED: AMLO-250 PO (12:36)
[2020-09-19] MEDS ORDERED: PRED10TA22 PO (12:36)
--- NOTE | 2020-09-19 12:36 | Discharge Summary ---
Diagnosis/Chief Complaint Date of Admission Sep 16, 2020 at 15:00 Date of Discharge Discharge Date: Sep 19, 2020 Discharge Diagnosis Assessment: AECOPD Hypoxia COVID negative CHemotherapy induced neuropathy DM HTN Plan: IV steroids Nebs O2 IS ICS Discharge Summary Discharge Physical Examination Allergies: Coded Allergies: No Known Drug Allergies (Unverified , 09/16/20) Vitals & I&Os Vital Signs Date Time Temp Pulse Resp B/P (MAP) Pulse Ox O2 Delivery O2 Flow Rate FiO2 09/19/20 16:34 36.2 82 18 193/81 (118) 93 Nasal Cannula 2.50 General Appearance: Alert, Oriented X3, Cooperative Respiratory: Clear to Auscultation Cardiovascular: Regular Rate Neuro: Normal Gait, Normal Speech, Strength at 5/5 X4 Ext Psych/Mental Status: Mental Status NL Hospital Course Was the Problem List Reviewed?: Yes Short course after admitted and COVID negative placed on steroids and PCT negative so no infection suspected. Patient required 24/7 O2 at 3L/min and that was ordered at DC along with steroids taper dose and resume home meds Labs (last 24 hrs) Laboratory Tests 09/16/20 13:15: Coronavirus 2019 (JAYNA) Negative 09/16/20 13:30: White Blood Count 7.5, Red Blood Count 4.18, Hemoglobin 13.0, Hematocrit 40, Mean Corpuscular Volume 96, Mean Corpuscular Hemoglobin 31, Mean Corpuscular Hemoglobin Concent 32, Red Cell Distribution Width 13.8, Platelet Count 274, Mean Platelet Volume 9.8, Immature Granulocyte % (Auto) 0, Neutrophils (%) (Auto) 52, Lymphocytes (%) (Auto) 21, Monocytes (%) (Auto) 6, Eosinophils (%) (Auto) 19H, Basophils (%) (Auto) 1, Neutrophils # (Auto) 3.9, Lymphocytes # (Auto) 1.6, Monocytes # (Auto) 0.5, Eosinophils # (Auto) 1.5H, Basophils # (Auto) 0.1, Immature Granulocyte # (Auto) 0.0, Neutrophils % (Manual) 54, Lymphocytes % (Manual) 18, Monocytes % (Manual) 5, Eosinophils % (Manual) 23, Blood Morphology Comment NORMAL, D-Dimer 0.91H, Sodium Level 140, Potassium Level 3.9, Chloride Level 103, Carbon Dioxide Level 27, Anion Gap 10, Blood Urea Nitrogen 21H, Creatinine 0.81, Estimat Glomerular Filtration Rate > 60, BUN/Creatinine Ratio 26, Glucose Level 183H, Calcium Level 9.3, Corrected Calcium 9.1, Total Bilirubin 0.7, Aspartate Amino Transf (AST/SGOT) 19, Alanine Aminotransferase (ALT/SGPT) 13, Alkaline Phosphatase 70, Troponin I < 0.028, B- Type Natriuretic Peptide 31.6, Total Protein 7.0, Albumin 4.3, Procalcitonin 0.02 09/16/20 13:35: Blood Gas Puncture Site LR, Blood Gas Patient Temperature 97.5, Arterial Blood pH 7.38, Arterial Blood Partial Pressure CO2 46H, Arterial Blood Partial Pressure O2 60L, Arterial Blood HCO3 27, Arterial Blood Total CO2 28.7, Arterial Blood Oxygen Saturation 89L, Arterial Blood Base Excess 2.5, Rafa Test YES-POS, Blood Gas Ventilator Setting NO, Blood Gas Inspired Oxygen 2L 09/16/20 14:49: Coronavirus (COVID-19)(PCR) Negative 09/17/20 04:25: White Blood Count 8.0, Red Blood Count 4.22, Hemoglobin 12.9, Hematocrit 41, Mean Corpuscular Volume 97, Mean Corpuscular Hemoglobin 31, Mean Corpuscular H emoglobin Concent 32, Red Cell Distribution Width 13.9, Platelet Count 246, Mean Platelet Volume 10.6, Immature Granulocyte % (Auto) 1, Neutrophils (%) (Auto) 86H, Lymphocytes (%) (Auto) 12, Monocytes (%) (Auto) 2, Eosinophils (%) (Auto) 0, Basophils (%) (Auto) 0, Neutrophils # (Auto) 6.9, Lymphocytes # (Auto) 1.0, Monocytes # (Auto) 0.1, Eosinophils # (Auto) 0.0, Basophils # (Auto) 0.0, Immature Granulocyte # (Auto) 0.0, Sodium Level 139, Potassium Level 3.7, Chloride Level 105, Carbon Dioxide Level 22, Anion Gap 12, Blood Urea Nitrogen 18, Creatinine 0.79, Estimat Glomerular Filtration Rate > 60, BUN/Creatinine Ratio 23, Glucose Level 241H, Calcium Level 9.5, Corrected Calcium 9.2, Total Bilirubin 0.6, Aspartate Amino Transf (AST/SGOT) 18, Alanine Aminotransferase (ALT/SGPT) 12, Alkaline Phosphatase 69, Total Protein 7.2, Albumin 4.4 09/18/20 05:50: White Blood Count 17.8H, Red Blood Count 4.42, Hemoglobin 13.4, Hematocrit 42, Mean Corpuscular Volume 95, Mean Corpuscular Hemoglobin 30, Mean Corpuscular Hemoglobin Concent 32, Red Cell Distribution Width 14.0, Platelet Count 327, Mean Platelet Volume 10.5, Immature Granulocyte % (Auto) 1, Neutrophils (%) (Auto) 90H, Lymphocytes (%) (Auto) 7L, Monocytes (%) (Auto) 3, Eosinophils (%) (Auto) 0, Basophils (%) (Auto) 0, Neutrophils # (Auto) 16.0H, Lymphocytes # (Auto) 1.3, Monocytes # (Auto) 0.4, Eosinophils # (Auto) 0.0, Basophils # (Auto) 0.0, Immature Granulocyte # (Auto) 0.1, Sodium Level 141, Potassium Level 3.7, Chloride Level 103, Carbon Dioxide Level 27, Anion Gap 11, Blood Urea Nitrogen 19H, Creatinine 0.89, Estimat Glomerular Filtration Rate > 60, BUN/Creatinine Ratio 21, Glucose Level 249H, Calcium Level 9.8, Corrected Calcium , Total Bilirubin 0.6, Aspartate Amino Transf (AST/SGOT) 21, Alanine Aminotransferase (ALT/SGPT) 16, Alkaline Phosphatase 69, Total Protein 7.6, Albumin 4.6H, Neutrophils % (Manual) 87, Lymphocytes % (Manual) 10, Monocytes % (Manual) 3, Blood Morphology Comment NORMAL 09/19/20 05:11: Glucometer 260H 09/19/20 05:25: White Blood Count 11.5H, Red Blood Count 4.19, Hemoglobin 12.8, Hematocrit 40, Mean Corpuscular Volume 96, Mean Corpuscular Hemoglobin 31, Mean Corpuscular Hemoglobin Concent 32, Red Cell Distribution Width 13.8, Platelet Count 294, Mean Platelet Volume 10.9, Immature Granulocyte % (Auto) 0, Neutrophils (%) (Auto) 90H, Lymphocytes (%) (Auto) 7L, Monocytes (%) (Auto) 2, Eosinophils (%) (Auto) 0, Basophils (%) (Auto) 0, Neutrophils # (Auto) 10.3H, Lymphocytes # (Auto) 0.9L, Monocytes # (Auto) 0.3, Eosinophils # (Auto) 0.0, Basophils # (Auto) 0.0, Immature Granulocyte # (Auto) 0.1, Sodium Level 138, Potassium Level 3.9, Chloride Level 103, Carbon Dioxide Level 25, Anion Gap 10, Blood Urea Nitrogen 23H, Creatinine 0.80, Estimat Glomerular Filtration Rate > 60, BUN/Creatinine Ratio 29, Glucose Level 310H, Calcium Level 9.6, Corrected Calcium 9.5, Total Bilirubin 0.6, Aspartate Amino Transf (AST/SGOT) 19, Alanine Aminotransferase (ALT/SGPT) 16, Alkaline Phosphatase 62, Total Protein 6.8, Albumin 4.1, Procalcitonin 0.01 09/19/20 11:06: Glucometer 291H 09/19/20 16:11: Glucometer 211H Pending Labs Laboratory Tests 09/16/20 13:15: Coronavirus 2019 (JAYNA) Negative 09/16/20 13:30: White Blood Count 7.5, Red Blood Count 4.18, Hemoglobin 13.0, Hematocrit 40, Mean Corpuscular Volume 96, Mean Corpuscular Hemoglobin 31, Mean Corpuscular Hemoglobin Concent 32, Red Cell Distribution Width 13.8, Platelet Count 274, Mean Platelet Volume 9.8, Immature Granulocyte % (Auto) 0, Neutrophils (%) (Auto) 52, Lymphocytes (%) (Auto) 21, Monocytes (%) (Auto) 6, Eosinophils (%) (Auto) 19, Basophils (%) (Auto) 1, Neutrophils # (Auto) 3.9, Lymphocytes # (Auto) 1.6, Monocytes # (Auto) 0.5, Eosinophils # (Auto) 1.5, Basophils # (Auto) 0.1, Immature Granulocyte # (Auto) 0.0, Neutrophils % (Manual) 54, Lymphocytes % (Manual) 18, Monocytes % (Manual) 5, Eosinophils % (Manual) 23, Blood Morphology Comment NORMAL, D-Dimer 0.91, Sodium Level 140, Potassium Level 3.9, Chloride Level 103, Carbon Dioxide Level 27, Anion Gap 10, Blood Urea Nitrogen 21, Creatinine 0.81, Estimat Glomerular Filtration Rate > 60, BUN/Creatinine Ratio 26, Glucose Level 183, Calcium Level 9.3, Corrected Calcium 9.1, Total Bilirubin 0.7, Aspartate Amino Transf (AST/SGOT) 19, Alanine Aminotransferase (ALT/SGPT) 13, Alkaline Phosphatase 70, Troponin I < 0.028, B-Type Natriuretic Peptide 31.6, Total Protein 7.0, Albumin 4.3, Procalcitonin 0.02 09/16/20 13:35: Blood Gas Puncture Site LR, Blood Gas Patient Temperature 97.5, Arterial Blood pH 7.38, Arterial Blood Partial Pressure CO2 46, Arterial Blood Partial Pressure O2 60, Arterial Blood HCO3 27, Arterial Blood Total CO2 28.7, Arterial Blood Oxygen Saturation 89, Arterial Blood Base Excess 2.5, Rafa Test YES-POS, Blood Gas Ventilator Setting NO, Blood Gas Inspired Oxygen 2L 09/16/20 14:49: Coronavirus (COVID-19)(PCR) Negative 09/17/20 04:25: White Blood Count 8.0, Red Blood Count 4.22, Hemoglobin 12.9, Hematocrit 41, Mean Corpuscular Volume 97, Mean Corpuscular Hemoglobin 31, Mean Corpuscular Hemoglobin Concent 32, Red Cell Distribution Width 13.9, Platelet Count 246, Mean Platelet Volume 10.6, Immature Granulocyte % (Auto) 1, Neutrophils (%) (Auto) 86, Lymphocytes (%) (Auto) 12, Monocytes (%) (Auto) 2, Eosinophils (%) (Auto) 0, Basophils (%) (Auto) 0, Neutrophils # (Auto) 6.9, Lymphocytes # (Auto) 1.0, Monocytes # (Auto) 0.1, Eosinophils # (Auto) 0.0, Basophils # (Auto) 0.0, Immature Granulocyte # (Auto) 0.0, Sodium Level 139, Potassium Level 3.7, Chloride Level 105, Carbon Dioxide Level 22, Anion Gap 12, Blood Urea Nitrogen 18, Creatinine 0.79, Estimat Glomerular Filtration Rate > 60, BUN/Creatinine Ratio 23, Glucose Level 241, Calcium Level 9.5, Corrected Calcium 9.2, Total Bilirubin 0.6, Aspartate Amino Transf (AST/SGOT) 18, Alanine Aminotransferase (ALT/SGPT) 12, Alkaline Phosphatase 69, Total Protein 7.2, Albumin 4.4 09/18/20 05:50: White Blood Count 17.8, Red Blood Count 4.42, Hemoglobin 13.4, Hematocrit 42, Mean Corpuscular Volume 95, Mean Corpuscular Hemoglobin 30, Mean Corpuscular Hemoglobin Concent 32, Red Cell Distribution Width 14.0, Platelet Count 327, Mean Platelet Volume 10.5, Immature Granulocyte % (Auto) 1, Neutrophils (%) (Auto) 90, Lymphocytes (%) (Auto) 7, Monocytes (%) (Auto) 3, Eosinophils (%) (Auto) 0, Basophils (%) (Auto) 0, Neutrophils # (Auto) 16.0, Lymphocytes # (Auto) 1.3, Monocytes # (Auto) 0.4, Eosinophils # (Auto) 0.0, Basophils # (Auto) 0.0, Immature Granulocyte # (Auto) 0.1, Sodium Level 141, Potassium Level 3.7, Chloride Level 103, Carbon Dioxide Level 27, Anion Gap 11, Blood Urea Nitrogen 19, Creatinine 0.89, Estimat Glomerular Filtration Rate > 60, BUN/Creatinine Ratio 21, Glucose Level 249, Calcium Level 9.8, Corrected Calcium , Total Bilirubin 0.6, Aspartate Amino Transf (AST/SGOT) 21, Alanine Aminotransferase (ALT/SGPT) 16, Alkaline Phosphatase 69, Total Protein 7.6, Albumin 4.6, Neutrophils % (Manual) 87, Lymphocytes % (Manual) 10, Monocytes % (Manual) 3, Blood Morphology Comment NORMAL 09/19/20 05:11: Glucometer 260 09/19/20 05:25: White Blood Count 11.5, Red Blood Count 4.19, Hemoglobin 12.8, Hematocrit 40, Mean Corpuscular Volume 96, Mean Corpuscular Hemoglobin 31, Mean Corpuscular Hemoglobin Concent 32, Red Cell Distribution Width 13.8, Platelet Count 294, Mean Platelet Volume 10.9, Immature Granulocyte % (Auto) 0, Neutrophils (%) (Auto) 90, Lymphocytes (%) (Auto) 7, Monocytes (%) (Auto) 2, Eosinophils (%) (Auto) 0, Basophils (%) (Auto) 0, Neutrophils # (Auto) 10.3, Lymphocytes # (Auto) 0.9, Monocytes # (Auto) 0.3, Eosinophils # (Auto) 0.0, Basophils # (Auto) 0.0, Immature Granulocyte # (Auto) 0.1, Sodium Level 138, Potassium Level 3.9, Chloride Level 103, Carbon Dioxide Level 25, Anion Gap 10, Blood Urea Nitrogen 23, Creatinine 0.80, Estimat Glomerular Filtration Rate > 60, BUN/Creatinine Ratio 29, Glucose Level 310, Calcium Level 9.6, Corrected Calcium 9.5, Total Bilirubin 0.6, Aspartate Amino Transf (AST/SGOT) 19, Alanine Aminotransferase (ALT/SGPT) 16, Alkaline Phosphatase 62, Total Protein 6.8, Albumin 4.1, Procalcitonin 0.01 09/19/20 11:06: Glucometer 291 09/19/20 16:11: Glucometer 211 Discharge Home Medications: Active Scripts Active Prednisone 10 Mg Tab.ds.pk 10 Mg PO DAILY Take 6 tabs(60mg)daily,decrease by 1 tab(10MG)daily. HYDROcodone/APAP 10/325 TABLET (Acetaminophen/Hydrocodone Bitart) 1 Ea Tab 1 Ea PO Q4H PRN Amlodipine Besylate 5 Mg Tablet 5 Mg PO DAILY Reported Dicyclomine HCl 20 Mg Tablet 20 Mg PO BID Gabapentin 600 Mg Tablet 600 Mg PO TID Metformin HCl ER (Metformin HCl) 500 Mg Tab.er.24h 500 Mg PO DAILY Montelukast Sodium 10 Mg Tablet 10 Mg PO DAILY Tizanidine HCl 4 Mg Tablet 4 Mg PO TID Atorvastatin Calcium 20 Mg Tablet 20 Mg PO DAILY Escitalopram Oxalate 20 Mg Tablet 20 Mg PO DAILY Instructions to patient/family Please see electronic discharge instructions given to patient. Diagnosis/Problems Diagnosis/Problems (1) Reactive airway disease Status: Acute (2) ARTEAGA (dyspnea on exertion) Status: Acute Clinical Quality Measures DVT/VTE Risk/Contraindication: Risk Factor Score Per Nursin RFS Level Per Nursing on Admit: 4+=Very High ABIGAIL MAHER DO Sep 19, 2020 12:36
--- NOTE | 2020-09-19 13:58 | NUR ---
CM/SS: Visited with pt as per plan for discharge related to home oxygen and transportation home from hospital. Plan: Pt is from
--- NOTE | 2020-09-19 14:16 | NUR ---
Pateint is requiring 3L at this time to maintain a sat of 92%. Addendum: 09/19/20 at 1416 by LILY LEAL RT Amended: Links added. Addendum: 09/19/20 at 1424 by LILY LEAL RT Pateint is requiring 3L continuously at this time to maintain a sat of 92%.
--- NOTE | 2020-09-19 14:39 | NUR ---
CM/SS: Visited with pt as per plan discharge related to oxygen need as well as transportation home. Plan: Pt will return home with no identified services - pt's oxygen order will be update and sent to her current [employer] company Summary: Pt reports she is from home - and will return there, however says she is moving to [place] to live with her daughter in a couple of weeks. Pt seems a little confused and gives this worker the name of her caregiver. This worker will follow up. Telephone call to [phone] - pt's caregiver - This is the phone number for pt's Nurse Practitioner, Macarena Bryant. She reports she can assist this worker in getting the daughters phone number. A member of the medical staff calls back with daughter and sons contact. Ashlie - daughter [phone], and son Benji [phone]. Telephone call to Ashlie - she will plan to hop picker pt around 600pm. She is leaving from [place], [place] to head this way to hop picker pt. She is also open to picking up oxygen if she needs too.
--- NOTE | 2020-09-19 15:08 | NUR ---
CM/SS: Telephone call to kenney Dailey to pt [phone] - she is able to lemon picker portable oxygen from [employer] to bring to the hospital for pt at time of discharge. Telephone call to DME ( Sherice) [phone] - fax [phone] - this worker is requesting that they call the Daughter to coordinate when the oxygen can be picked up and so that pt can have it through the weekend. DME will reach out to daughter to ensure that she has oxygen needs met. They are advised to leave a message if they can not reach daughter as she is traveling and may not have a good cell phone signal. They verbalize understanding.
[2020-09-19 16:34] VITALS: BP 193/81
[2020-09-19] MEDS: guaiFENesin/CODEINE (ROBITUSSIN AC) 10ML UDC PO PRN (18:00)
--- NOTE | 2020-09-19 18:15 | NUR ---
Discharged at 181, daughter here to pick her up.
[2020-09-20] MEDS ORDERED: amLODIPine 5 MG (NORVASC) TAB PO SCH (09:00)
== END 2020-09-19 18:10 | disposition home or self-care (01) | DRG 192 ==
LOC: ER 12:53 → 4TH 15:00
PROVIDERS: ADMIT Family Medicine; ATTEND Internal Medicine
DX: J44.1 Chronic obstructive pulmonary disease with (acute) exacerbation (principal); E78.00 Pure hypercholesterolemia, unspecified; I10 Essential (primary) hypertension; G89.29 Other chronic pain; M54.9 Dorsalgia, unspecified; E11.9 Type 2 diabetes mellitus without complications; R09.02 Hypoxemia; Z20.828 Contact with and (suspected) exposure to other viral communicable diseases; G60.8 Other hereditary and idiopathic neuropathies; R06.00 Dyspnea, unspecified
CPT/HCPCS: 36415; 71045; 71046; 80053; 82805; 82962; 83880; 84145; 84484; 85007; 85025; 85027; 85379; 87635; 90662; 93005; 94640; 94664; 94760; 94761